=== PATIENT | male | born 1955 | race Caucasian/White ===

== ENCOUNTER 2017-01-24 07:02 | Day surgery (SDC) | payer OTHER ==
[~2017-01-24 07:02] MED LIST: Buffered Lidocaine 1% SYRIN* 3 ML/SYR SYRINGE INTRADERM ONE
[2017-01-24] MEDS ORDERED: Midazolam* 1 MG/ML 2 ML VIAL (2 MG) ONE (09:02)
[2017-01-24 09:41] VITALS: BP 127/79
--- NOTE | 2017-01-24 11:37 | OP ---
AMENDED REPORT NOW INCLUDES DATE OF OPERATION - ESIGNED BEFORE ADJUSTMENT * DATE OF OPERATION: 01/24/17 - [facility] DATE OF : 51 SURGEON: Pitero Mccray M.D. PREOPERATIVE DIAGNOSIS: Cataract, right eye. POSTOPERATIVE DIAGNOSIS: Cataract, right eye. OPERATIVE PROCEDURE: Phacoemulsification, right eye with IOL and CTR.. DESCRIPTION OF PROCEDURE: The patient was brought to the operating room after being given 1/2% Alcaine with epinephrine drops in the preoperative area. The eye was prepped and draped in the usual sterile fashion. Sterile drape and eyelid speculum were placed. Again, topical 1/2% Alcaine with epinephrine was given. A paracentesis incision was made at the 9 o'clock position with the No.75 blade. Clear cornea incision 2.2 x 2.2-mm was created at the 12 o'clock position starting at the anterior limbus using the 2.2-mm keratome. The anterior chamber was irrigated with 0.4 mL of 1% non-preservative intracameral lidocaine and filled with DisCoVisc. A capsulorrhexis was completed using the cystotome and the Utrata forceps. Hydrodissection was performed with balanced salt solution. The lens nucleus was removed with the Phacoemulsification handpiece without incident. Cortex was removed with the irrigation-aspiration handpiece. The capsular bag was re-inflated using DisCoVisc and an [id number] implant was inserted with the shooter followed by a capsular tension ring, a CTR 12 inserted with a shooter into the capsular bag. The irrigation-aspiration handpiece was used to remove all residual DisCoVisc. The eye was refilled with balanced salt solution and the wound checked and found to be watertight. Topical Maxitrol drops were given. Indication for complex cataract surgery: Status post vitrectomy requiring capsular tension device. [id number]/[facility] #: [id number] MTDD
[2017-01-24] MEDS ORDERED: Povidone Iodine 5% OPTH* 30 ML BTL ONE (12:49)
[2017-01-24] MEDS ORDERED: Lidocaine 2% EPI 1:200000 MPF* 20 ML VIAL ONE (12:49)
[2017-01-24] MEDS ORDERED: Cyclopentolate 1% OPTH.SOL* 2 ML BTL ONE (12:49)
[2017-01-24] MEDS ORDERED: Proparacaine 0.5% OPHTH.SOL* 15 ML BTL ONE (12:49)
[2017-01-24] MEDS ORDERED: Neomycin/Polymy/Dex OPTH.SUSP* MAXITROL 0.1% 5 ML ONE (12:49)
[2017-01-24] MEDS ORDERED: Phenylephrine 2.5% OPTH.SOL* 2 ML BTL ONE (12:49)
[2017-01-24] MEDS ORDERED: acetaZOLAMIDE TAB* 250 MG ONE (12:49)
[2017-01-24] MEDS ORDERED: Lidocaine 1% MPF* 2 ML VIAL ONE (12:49)
[2017-01-24] MEDS ORDERED: Flurbiprofen 0.03% OPTH.SOL* 2.5 ML BTL ONE (12:49)
== END 2017-01-24 09:39 | disposition home or self-care (01) ==
LOC: OREAST 07:02
PROVIDERS: ATTEND Specialist
DX: H25.11 Age-related nuclear cataract, right eye (principal); H43.812 Vitreous degeneration, left eye; H33.8 Other retinal detachments; Z87.891 Personal history of nicotine dependence
CPT/HCPCS: A9270-GY; J2250; V2632

== ENCOUNTER 2017-07-04 09:52 | Day surgery (SDC) | payer OTHER ==
[~2017-07-04 09:52] MED LIST changes: +Acetaminophen TAB* 325 MG PO PRN; +Buffered Lidocaine 0.9% SYRIN* 5 ML/SYR SYRINGE INTRADERM ONE; -Buffered Lidocaine 1% SYRIN* 3 ML/SYR SYRINGE INTRADERM ONE
[2017-07-04] MEDS ORDERED: acetaZOLAMIDE TAB* 250 MG ONE (10:27)
[2017-07-04] MEDS ORDERED: Lidocaine 1% MPF* 2 ML VIAL ONE (10:27)
[2017-07-04] MEDS ORDERED: Cyclopentolate 1% OPTH.SOL* 2 ML BTL ONE (10:27)
[2017-07-04] MEDS ORDERED: Lidocaine 2% EPI 1:200000 MPF* 20 ML VIAL ONE (10:28)
[2017-07-04] MEDS ORDERED: Povidone Iodine 5% OPTH* 30 ML BTL ONE (10:28)
[2017-07-04] MEDS ORDERED: Ketorolac 0.5% OPHTH (NF) 0.5 % 5 ML BTL ONE (10:28)
[2017-07-04] MEDS ORDERED: Neomycin/Polymy/Dex OPTH.SUSP* MAXITROL 0.1% 5 ML ONE (10:28)
[2017-07-04] MEDS ORDERED: Phenylephrine 2.5% OPTH.SOL* 2 ML BTL ONE (10:28)
[2017-07-04] MEDS ORDERED: Midazolam* 1 MG/ML 5 ML VIAL (5 MG) ONE (12:04)
[2017-07-04] MEDS ORDERED: fentaNYL* 50 MCG/ML 2 ML VIAL (100 MCG VIAL) ONE (12:04)
[2017-07-04] MEDS ORDERED: Midazolam* 1 MG/ML 2 ML VIAL (2 MG) ONE (12:15)
[2017-07-04 12:53] VITALS: BP 153/83
[2017-07-04] MEDS ORDERED: Buffered Lidocaine 0.9% SYRIN* 5 ML/SYR SYRINGE ONE (15:32)
[2017-07-04] MEDS ORDERED: Proparacaine 0.5% OPHTH.SOL* 15 ML BTL ONE (15:32)
--- NOTE | 2017-07-04 16:34 | OP ---
DATE OF OPERATION: 07/04/2017 - [facility] DATE OF : 1955. SURGEON: Pietro Mccray M.D. PREOPERATIVE DIAGNOSIS: Cataract left eye. POSTOPERATIVE DIAGNOSIS: Cataract left eye. OPERATIVE PROCEDURE: Phacoemulsification left eye with IOL. DESCRIPTION OF PROCEDURE: The patient was brought to the operating room after being given 1/2% Alcaine with epinephrine drops in the preoperative area. The eye was prepped and draped in the usual sterile fashion. Sterile drape and eyelid speculum were placed. Again, topical 1/2% Alcaine with epinephrine was given. A paracentesis incision was made at the 3 o'clock position with the No.75 blade. Clear cornea incision 2.2 x 2.2-mm was created at the 6 o'clock position starting at the anterior limbus using the 2.2-mm keratome. The anterior chamber was irrigated with 0.4 mL of 1% non-preservative intracameral lidocaine and filled with DisCoVisc. A capsulorrhexis was completed using the cystotome and the Utrata forceps. Hydrodissection was performed with balanced salt solution. The lens nucleus was removed with the Phacoemulsification handpiece without incident. Cortex was removed with the irrigation-aspiration handpiece. The capsular bag was re-inflated using DisCoVisc and an [id number] 17.5 implant was inserted with the shooter. The irrigation-aspiration handpiece was used to remove all residual DisCoVisc. The eye was refilled with balanced salt solution and the wound checked and found to be watertight. Topical Maxitrol drops were given. [id number]/[facility] #: [id number] [facility]
== END 2017-07-04 13:07 | disposition home or self-care (01) ==
LOC: OREAST 09:52
PROVIDERS: ATTEND Specialist
DX: H25.12 Age-related nuclear cataract, left eye (principal); H43.813 Vitreous degeneration, bilateral; H33.8 Other retinal detachments; Z87.891 Personal history of nicotine dependence; R42 Dizziness and giddiness
CPT/HCPCS: A9270-GY; J2250; J3010; V2632

== ENCOUNTER 2019-10-19 10:31 | Emergency (ER) | payer MEDICARE ==
--- OUTSIDE RECORDS SUMMARY | 2019-10-19 10:36 | XMS REPORT | Continuity of Care Document ---
:1955 External Reference #:[id number] Author Name Lauro Raza MD Address [address] [place] [address] Care Team Providers Name Role Phone Gonzalo Carlton MD - Family Medicine Care Team Information Deposit Clerk Rosa Nunes N.P. - Nurse Care Team Information Deposit Clerk Practitioner Problems Description No Information Available Social History Type Date Description Comments Sex Unknown Tobacco Use Start: Unknown End: Former Cigarette Smoker Quit at 22. Unknown Tobacco Use Start: Unknown Never Smoked Cigars Tobacco Use Start: Unknown Never Smoked A Pipe Smokeless Tobacco Never Used Smokeless Tobacco ETOH Use Currently Consumes Alcohol Allergies, Adverse Reactions, Alerts Description No Known Drug Allergies Medications Active Medications SIG Qnty Indications Ordering Provider Date Meclizine HCL take 1 tablet by Unknown 25mg mouth three Tablets times a day if needed Alprazolam Cinthya Herbert 0.5mg Tablets WATER RESTORATION TECHNICIAN Tadalafil Take 1 Tablet By Unknown 5mg Tablets Mouth Once A Day. History Medications Prednisone 40mg by mouth 15tabs H90.5 Lauro Raza MD 08/15/2019 - 50mg once per day in 08/27/2019 Tablets in the morning x 5days 20 mg by mouth once per dayx 5days then d/c Immunizations Description No Information Available Vital Signs Date Vital Result Comment 08/28/2019 9:57am Weight 230.00 lb Weight 104.328 kg Height 75 inches 6'3" Height in cm's 190.5 cm BMI (Body Mass Index) 28.7 kg/m2 08/15/2019 8:38am Weight 230.00 lb Weight 104.328 kg Height 75 inches 6'3" Height in cm's 190.5 cm BMI (Body Mass Index) 28.7 kg/m2 Results Description No Information Available Procedures Date Code Description Status 08/20/2019 98216 Tympanometry Completed 08/20/2019 37422 Comprehensive Audiogram Completed Medical Devices Description No Information Available Encounters Type Date Location Provider Dx Diagnosis Office Visit 08/15/2019 [place],After Lauro Raza H90.5 Unspecified 8:30a 09/24/07 sensorineural hearing loss H93.12 Tinnitus, left ear Assessments Date Code Description Provider 08/28/2019 H90.A22 Sensorineural hearing loss, unilateral, left Lauro Raza MD ear, with restricted hearing on the contralateral side 08/20/2019 H90.A22 Sensorineural hearing loss, unilateral, left DIPAK Vasquez ear, with restricted hearing on the contralateral side 08/15/2019 H90.5 Unspecified sensorineural hearing loss Lauro Raza MD 08/15/2019 H93.12 Tinnitus, left ear Lauro Raza MD Plan of Treatment Future Appointment(s):09/12/2019 11:00 am - Lauro Raza MD at [place],After 10:30 am - DIPAK Vasquez at [place],After 09/24/811 - Lauro Raza MDH90.A22 Sensorineural hearing loss, unilateral, left ear, with restricted hearing on the contralateral sideNew Labs:Blood Urea Nitrogen BUN, Ordered: 08/28/19Creatinine, Ordered: 08/28/19Comments:Asymmetrical sensorineural hearing loss no specific etiology although he is on Cialis. No improvement on steroids. I suggest MRI recheck back after MRI Functional Status Description No Information Available Mental Status Description No Information Available Referrals Description No Information Available
--- OUTSIDE RECORDS SUMMARY | 2019-10-19 10:36 | XMS REPORT | Continuity of Care Document ---
:1955 External Reference #:[id number] Author Name Lauro Raza MD Address [address] [place] [address] Care Team Providers Name Role Phone Gonzalo Carlton MD - Family Medicine Care Team Information Director Of Community Services [phone] Rosa Nunes N.P. - Nurse Care Team Information Director Of Community Services Practitioner Problems Description No Information Available Social [...] Medications SIG Qnty Indications Ordering Provider Date Ativan 1 mg by mouth 30 1tabs Lauro Raza MD 09/04/2019 1mg Tablets min prior to procedure Meclizine HCL take 1 tablet by Unknown 25mg mouth three times Tablets a day if needed Alprazolam Cinthya Herbert 0.5mg COLOR TECHNICIAN Tablets Tadalafil Take 1 Tablet By Unknown 5mg Tablets Mouth Once A Day. History Medications Prednisone 40mg by mouth 15tabs H90.5 Lauro Raza MD 08/15/2019 - 50mg once per day in 08/27/2019 Tablets in the morning x 5days 20 mg by mouth once per dayx 5days then d/c Immunizations Description No Information Available Vital Signs Date Vital Result Comment 09/26/2019 10:06am Weight 230.00 lb Weight 104.328 kg Height 75 inches 6'3" Height in cm's 190.5 cm BMI (Body Mass Index) 28.7 kg/m2 08/28/2019 9:57am Weight 230.00 lb Weight 104.328 kg Height 75 inches 6'3" Height in cm's 190.5 cm BMI (Body Mass Index) 28.7 kg/m2 Results Test Acquired Facility Test Result H/L Range Note Date Laboratory 08/28/2019 [facility] Blood Urea 22 mg/dL Normal 6-24 test finding c/o Department [place] [address] [phone] Creatinine 08/28/2019 [facility] Creatinine 1.00 Normal 0.67-1.1 c/o Department of Laboratories mg/dL [address] [place] [address] [phone] Egfr Non- 74.8 >60 Egfr 90.5 >60 1 1 Because ethnic data is not always readily available, this report includes an eGFR for both -Americans and non- Americans. The National Kidney Disease Education Program (NKDEP) does not endorse the use of the MDRD equation for patients that are not between the ages of 18 and 70, are , have extremes of body size, muscle mass, or nutritional status, or are non- or non-. According to the National Kidney Foundation, irrespective of diagnosis, the stage of the disease is based on the level of kidney function: Stage Description GFR(mL/min/1.73 m(2)) 1 Kidney damage with normal or decreased GFR 90 2 Kidney damage with mild decrease in GFR 60-89 3 Moderate decrease in GFR 30-59 4 Severe decrease in GFR 15-29 5 Kidney failure <15 (or dialysis) Procedures Date Code Description Status 09/26/2019 73016 Tympanometry Completed 09/26/2019 98533 Comprehensive Audiogram Completed 08/20/2019 86822 Tympanometry Completed 08/20/2019 34644 Comprehensive Audiogram Completed Medical Devices Description No Information Available Encounters Type Date Location Provider Dx Diagnosis Office Visit 09/26/2019 [place],Lauro Woodruff H90.A22 Snsrnrl hear 10:00a 09/24/07 MD loss, uni, l ear, with rstrcd hear cntra side H90.5 Unspecified sensorineural hearing loss H93.12 Tinnitus, left ear Office Visit 08/28/2019 [place],After Lauro Raza H90.A22 Snsrnrl hear loss, 10:00a 09/24/07 uni, l ear, with rstrcd hear cntra side Office Visit 08/15/2019 [place],After Lauro Raza H90.5 Unspecified 8:30a 09/24/07 sensorineural hearing loss H93.12 Tinnitus, left ear Assessments Date Code Description Provider 09/26/2019 H90.A22 Sensorineural hearing loss, unilateral, left Luz Marina, Lauro FAITH ear, with restricted hearing on the contralateral side 09/26/2019 H90.5 Unspecified sensorineural hearing loss Lauro Raza MD 09/26/2019 H93.12 Tinnitus, left ear Ruparelia, Lauro FAITH 08/28/2019 H90.A22 Sensorineural hearing loss, unilateral, left Rupargege, Lauro FAITH ear, with restricted hearing on the contralateral side 08/20/2019 H90.A22 Sensorineural hearing loss, unilateral, left Nirmalawhitney Shen , [place].D ear, with restricted hearing on the contralateral side 08/15/2019 H90.5 Unspecified sensorineural hearing loss Lauro Raza MD 08/15/2019 H93.12 Tinnitus, left ear Lauro Raza MD Plan of Treatment 09/26/2019 - Lauro Raza MDH90.A22 Sensorineural hearing loss, unilateral, left ear, with restricted hearing on the contralateral sideH90.5 Unspecified sensorineural hearing lossComments:I suggest repeating the audiogram in 6 months time if it remains stable he may be a candidate for bilateral hearing aids. No evidence of retrocochlear pathology this may be hydrops.H93.12 Tinnitus, left ear Functional Status Description No Information Available Mental Status Description No Information Available Referrals Description No Information Available
[2019-10-19 11:09] VITALS: BP 142/91
[2019-10-19 11:31] LABS: Influenza A Molecular NEGATIVE (Negative); Influenza B Molecular NEGATIVE (Negative)
--- NOTE | 2019-10-19 11:36 | UC ---
Throat Pain/Nasal Delvis HPI - HPI Summary HPI Summary: 64-year-old male comes in with a chief complaint of upper respiratory tract infection symptoms for 2 days. He does have some rhinorrhea some postnasal drip he's got a sore throat. He feels like he has upper chest congestion. Does feel short of breath with it. When he coughs he does feel like he is moving some congestion but is not been able to get anything out. No fevers measured. The symptoms remind him of a August 2019 illness that he was treated with doxycycline for. - History of Current Complaint Chief Complaint: UCGeneralIllness Stated Complaint: RESP COMPLAINT Time Seen by Provider: 10/19/19 11:14 Pain Intensity: 3 - Allergies/Home Medications Allergies/Adverse Reactions: Allergies Allergy/AdvReac Type Severity Reaction Status Date / Time No Known Allergies Allergy Verified 10/19/19 11:09 PMH/Surg Hx/FS Hx/Imm Hx Previously Healthy: Yes - Surgical History Surgical History: Yes Surgery Procedure, Year, and Place: BILAT KNEE SCOPING . RIGHT ESWL 2013 [facility] [place]. right inquinal hernia 2014. TURP 2015. right eye cataract removal 02/07. LEFT EYE CATARACT SURGERY AND SECONDARY CATARACT WITH LASER 2018 - Family History Known Family History: Positive: Non-Contributory - Social History Alcohol Use: Daily Alcohol Amount: 2/DAY Substance Use Type: None Smoking Status (MU): Former Smoker Have You Smoked in the Last Year: No When Did the Patient Quit Smoking/Using Tobacco: 1976 Household Exposure Type: Cigarettes Review of Systems All Other Systems Reviewed And Are Negative: Yes Constitutional: Positive: Other - SEE HPI Skin: Positive: Negative Eyes: Positive: Negative ENT: Positive: Sore Throat, Nasal Discharge, Sinus Congestion Respiratory: Positive: Cough, Other - SEE HPI Cardiovascular: Positive: Negative Gastrointestinal: Positive: Negative Motor: Positive: Negative Neurovascular: Positive: Negative Musculoskeletal: Positive: Negative Neurological: Positive: Negative Psychological: Positive: Negative Is Patient Immunocompromised?: No Physical Exam Triage Information Reviewed: Yes Appearance: Well-Appearing, No Pain Distress, Well-Nourished Vital Signs: Initial Vital Signs Temp 97.7 F 10/19/19 11:03 Pulse 73 10/19/19 11:03 Resp 18 10/19/19 11:03 BP 142/91 10/19/19 11:03 Pulse Ox 97 10/19/19 11:03 Vital Signs Reviewed: Yes Eye Exam: Normal Eyes: Positive: Conjunctiva Clear ENT: Positive: Pharyngeal erythema, Nasal congestion, Nasal drainage, TMs normal Neck: Positive: Supple Respiratory: Positive: No respiratory distress, Rhonchi Cardiovascular: Positive: RRR Musculoskeletal: Positive: Strength Intact, ROM Intact Neurological: Positive: Alert, Muscle Tone Normal Psychological: Positive: Age Appropriate Behavior Skin Exam: Normal Throat Pain/Nasal Course/Dx - Course Course Of Treatment: DISCUSSED VIRAL VERSES BACTERIAL INFECTIONS AND THE ROLE OF ANTIBIOTICS. THE PATIENT PREFERS TO BE ON ANTIBIOTICS AT THIS TIME. - Differential Dx/Diagnosis Provider Diagnosis: Upper respiratory infection Discharge ED - Sign-Out/Discharge Documenting (check all that apply): Patient Departure All imaging exams completed and their final reports reviewed: No Studies - Discharge Plan Condition: Stable Disposition: HOME Prescriptions: DOXYcycline CAP(*) [DOXYcycline 100MG CAP(*)] 100 mg PO BID #20 cap Patient Education Materials: Upper Respiratory Infection (ED) Referrals: Gonzalo Carlton MD [Primary Care Provider] - Additional Instructions: FOLLOW UP WITH YOUR DOCTOR IF NOT COMPLETELY IMPROVED. GET REEVALUATED SOONER IF NOT IMPROVED OR WORSE OR ANY QUESTIONS OR CONCERNS. - Billing Disposition and Condition Condition: STABLE Disposition: Home
== END 2019-10-19 11:45 | disposition home or self-care (01) ==
LOC: UCEAST 10:31
DX: J06.9 Acute upper respiratory infection, unspecified (principal); Z87.891 Personal history of nicotine dependence
CPT/HCPCS: 87651; 99212; G0463